=== PATIENT | male | born 1960 | race Caucasian/White ===

== ENCOUNTER 2016-11-09 23:13 | Emergency (ER) | payer OTHER ==
[~2016-11-09] VITALS: Ht 172.7 cm; Wt 84.0 kg
[2016-11-09 23:16] VITALS: Ht 172.7 cm; Wt 84.0 kg
[2016-11-10] MEDS ORDERED: HYDROCODONE/APAP (5/325) TAB PO STA (01:17)
[2016-11-10] MEDS ORDERED: DIPHTH/TET/ACEL PERTUSS (ADULT) 0.5 ML VIAL IM ONE (01:30)
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
[2016-11-10] MEDS ORDERED: ACET325T33 PO (02:23)
== END 2016-11-10 02:51 | disposition home or self-care (01) ==
LOC: FTE 23:13
DX: S61.412A Laceration without foreign body of left hand, initial encounter (principal); I10 Essential (primary) hypertension; J45.909 Unspecified asthma, uncomplicated; W26.0XXA Contact with knife, initial encounter; Y92.9 Unspecified place or not applicable; Z23 Encounter for immunization
CPT/HCPCS: 12001; 90471; 90715; Z7502; Z7610

== ENCOUNTER 2016-11-17 14:18 | Emergency (ER) | payer OTHER ==
[~2016-11-17] VITALS: Wt 113.6 kg
[~2016-11-17 14:18] MED LIST: ACET325T33 PO
[2016-11-17] MEDS ORDERED: KETOROLAC 30 MG INJ IM STA (15:02)
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
[2016-11-17] MEDS ORDERED: DIAZEPAM 5 MG/ML SYG IM ONE (15:30)
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
[2016-11-17] MEDS ORDERED: NAPR-260 PO (16:45)
[2016-11-17] MEDS ORDERED: ORPH100T PO (16:45)
== END 2016-11-17 16:50 | disposition home or self-care (01) ==
LOC: FTE 14:18
DX: M54.9 Dorsalgia, unspecified (principal); I10 Essential (primary) hypertension; J45.909 Unspecified asthma, uncomplicated
CPT/HCPCS: 71010; 71110; 72040; 72072; 72100; J1885; J3360; 96372

== ENCOUNTER 2017-05-27 14:22 | Emergency (ER) | payer OTHER ==
[~2017-05-27] VITALS: Ht 172.7 cm; Wt 77.3 kg
[~2017-05-27 14:22] MED LIST changes: +NAPR-260 PO; +ORPH100T PO
[2017-05-27 14:46] VITALS: Ht 172.7 cm; Wt 77.3 kg
[2017-05-27] MEDS ORDERED: IBUPROFEN 800 MG TAB PO ONE (15:00)
[2017-05-27] MEDS ORDERED: DIPHTH/TET/ACEL PERTUSS (ADULT) 0.5 ML VIAL IM* ONE (15:00)
[2017-05-27] MEDS ORDERED: LISI20TA11 PO (15:06)
[2017-05-27] MEDS ORDERED: HYDR-902 PO (15:06)
[2017-05-27] MEDS ORDERED: SERT100T PO (15:07)
[2017-05-27] MEDS ORDERED: ATOR20TA38 PO (15:07)
[2017-05-27] MEDS ORDERED: GABA400C14 PO (15:07)
[2017-05-27] MEDS ORDERED: TRAZ150T65 PO (15:07)
[2017-05-27] MEDS ORDERED: HYDROCODONE/APAP (5/325) TAB PO ONE (15:30)
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
[2017-05-27 17:30] VITALS: BP 135/93; PULSE 73; RESP 12; TEMP 97.9
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
[2017-05-27] MEDS ORDERED: IBUP800T25 PO (18:15)
[2017-05-27] MEDS ORDERED: HYDR-906 PO (18:15)
== END 2017-05-27 18:28 | disposition home or self-care (01) ==
LOC: E/R 14:22
DX: S09.90XA Unspecified injury of head, initial encounter (principal); S00.83XA Contusion of other part of head, initial encounter; J45.909 Unspecified asthma, uncomplicated; I10 Essential (primary) hypertension; Y08.89XA Assault by other specified means, initial encounter
CPT/HCPCS: 70450; 70486; 90471; 90715; Z7502; Z7610

== ENCOUNTER 2017-08-04 10:08 | Emergency (ER) | END 2017-08-04 12:10 | disposition home or self-care (01) ==

== ENCOUNTER 2017-08-22 12:35 | Emergency (ER) | END 2017-08-22 14:30 | disposition home or self-care (01) ==

== ENCOUNTER 2017-10-13 10:28 | Emergency (ER) | END 2017-10-13 14:42 | disposition home or self-care (01) ==

== ENCOUNTER 2017-11-09 12:07 | Emergency (ER) | END 2017-11-09 16:02 | disposition home or self-care (01) ==

== ENCOUNTER 2018-01-26 13:10 | Emergency (ER) | END 2018-01-26 16:55 | disposition home or self-care (01) ==

== ENCOUNTER 2018-02-07 15:16 | Emergency (ER) | END 2018-02-07 19:09 | disposition home or self-care (01) ==

== ENCOUNTER 2018-06-17 23:29 | Emergency (ER) | END 2018-06-18 05:33 | disposition short-term general hospital (02) ==

== ENCOUNTER 2018-07-24 16:16 | Emergency (ER) | END 2018-07-24 18:28 | disposition home or self-care (01) ==